=== PATIENT | male | born 1970 | race Caucasian/White ===

== ENCOUNTER 2020-08-25 20:13 | Inpatient (IN) ==
[2020-08-25] MEDS ORDERED: 0.9 % Sodium Chloride 2,000 ML ONE (20:33)
[2020-08-25] MEDS ORDERED: *HR* Atropine Sulfate 1 MG/10 ML SYRINGE ONE (20:34)
[2020-08-25] MEDS ORDERED: ISOVUE-370 200 ML INFUS..BTL ONE ×2 (20:34→21:46)
[2020-08-25] MEDS ORDERED: Nitroglycerin 1,000 MCG/10 ML VIAL IV ONE (20:34)
[2020-08-25] MEDS ORDERED: *HR* Bivalirudin 250 MG VIAL IVC ONE (20:34)
[2020-08-25] MEDS ORDERED: *HR* Heparin 10,000 UNIT/10 ML VIAL ONE (20:34)
[2020-08-25] MEDS ORDERED: Heparin 1,000 UNITS/500 mL 500 ML ONE (20:34)
[2020-08-25] MEDS ORDERED: *HR* Midazolam HCl 2 MG/2 ML VIAL ONE (21:37)
[2020-08-25] MEDS ORDERED: *HR* FentaNYL (PF) 100 MCG/2 ML VIAL ONE (21:37)
[2020-08-25] MEDS ORDERED: 0.9 % Sodium Chloride 1,000 ML IVC SCH (22:30)
[2020-08-25] MEDS ORDERED: Perflutren Lipid Microsphere 1.3 ML in 0.9 % Sodium Chloride 8.7 ML IVP PRN (22:30)
[2020-08-25] MEDS ORDERED: Nitroglycerin 0.4 MG TAB.SUBL SL PRN (22:30)
[2020-08-26] MEDS ORDERED: 0.9 % Sodium Chloride 1,000 ML ONE (00:39)
[2020-08-26] MEDS ORDERED: *HR* Atropine Sulfate 1 MG/10 ML SYRINGE ONE (00:39)
[2020-08-26 07:04] LABS: BUN/Creatinine Ratio 23 (6-26); Blood Urea Nitrogen 14 mg/dL (6-20); Calcium 9.3 mg/dL (8.6-10.3); Carbon Dioxide 22 mEq/L (23-29); Chloride 108 mEq/L (98-107); Chol/HDL Ratio 4.6 (0-4.9); Cholesterol 216 mg/dL (< 200); Glucose 111 mg/dL (70-105); HDL Cholesterol 47 mg/dL (40-59); LDL Cholesterol,Calculated 107 mg/dL (< 100); Osmolality,Calculated 291 (280-300); Potassium 3.9 mEq/L (3.5-5.1); Sodium 140 mEq/L (136-145); Triglycerides 309 mg/dL (< 150); Troponin I 69.42 ng/mL (< 0.04); eGFR For African Americans > 60 (> 60); eGFR For Non-African Americans > 60 (> 60)
[2020-08-26] MEDS ORDERED: carvediloL 6.25 MG TABLET PO SCH (08:00)
[2020-08-26 08:38] LABS: Estimated Average Glucose 131 mg/dl
[2020-08-26] MEDS ORDERED: Aspirin 81 MG TAB.CHEW PO SCH (09:00)
[2020-08-26] MEDS ORDERED: lisinopriL 5 MG TABLET PO SCH (09:00)
[2020-08-26] MEDS ORDERED: *HR* Ticagrelor 90 MG TABLET PO SCH (09:00)
[2020-08-26 10:10] VITALS: BP 100/62
== END 2020-08-26 15:45 | disposition left against medical advice (07) | DRG 246 ==
LOC: ICNU → OBSVTOIN 22:25
PROVIDERS: ADMIT Internal Medicine Interventional Cardiology; ATTEND Internal Medicine Interventional Cardiology

== ENCOUNTER 2022-03-22 20:22 | Inpatient (IN) ==
[2022-03-22 21:23] LABS: Immature Granulocytes % 0.6 % (0-4); Lymphocytes % 12.8 %; Mean Platelet Volume 10.6 fL (9.4-12.4)
[2022-03-22 21:25] LABS: Basophils # 0.1 K/mcL (0.0-0.2); Basophils % 0.9 %; Eosinophils # 0.1 K/mcL (0.0-0.6); Eosinophils % 0.9 %; Hematocrit 43.5 % (37.5-50.1); Hemoglobin 13.5 g/dL (12.9-16.9); Lymphocytes # 1.6 K/mcL (0.6-4.6); Mean Corpuscular Hemoglobin 27.7 pg (28.0-33.3); Mean Corpuscular Volume 89.1 fL (83.0-100.0); Monocytes # 1.3 K/mcL (0.0-1.3); Neutrophils # 9.5 K/mcL (1.6-8.9); Platelet Count 306 K/mcL (140-400); Red Blood Count 4.88 M/mcL (4.19-5.50); Red Cell Distribution Width 14.9 % (11.5-14.5); Segmented Neutrophils % 74.8 %; White Blood Count 12.7 K/mcL (4.3-11.1)
[2022-03-22] MEDS ORDERED: Famotidine 20 MG/2 ML VIAL IVP ONE (21:38)
[2022-03-22] MEDS ORDERED: Isovue-370 500 ML BOTTLE IVP ONE ×2 (21:38→21:55)
[2022-03-22] MEDS ORDERED: *HR* FentaNYL (PF) 100 MCG/2 ML VIAL IVP ONE ×2 (21:38→23:08)
[2022-03-22 21:54] LABS: Alanine Aminotransferase 112 Units/L (7-52); Albumin 3.6 g/dL (3.5-5.7); Albumin/Globulin Ratio 1.4 (1.1-2.2); Alkaline Phosphatase 283 Units/L (34-104); Aspartate Amino Transferase 60 Units/L (13-39); BUN/Creatinine Ratio 20 (6-26); Bilirubin,Direct 0.2 mg/dL (0.0-0.2); Bilirubin,Indirect 0.6 mg/dL (0.0-1.0); Bilirubin,Total 0.8 mg/dL (0.3-1.0); Blood Urea Nitrogen 23 mg/dL (6-20); Carbon Dioxide 25 mEq/L (23-29); Chloride 104 mEq/L (98-107); Globulin 2.5 g/dL (2.4-3.5); Glucose 126 mg/dL (70-105); Lipase 33 Units/L (11-82); Osmolality,Calculated 287 (280-300); Potassium 4.4 mEq/L (3.5-5.1); Sodium 136 mEq/L (136-145); Total Protein 6.1 g/dL (6.4-8.9); Troponin I 0.04 ng/mL (< 0.04); eGFR For African Americans > 60 (> 60); eGFR For Non-African Americans > 60 (> 60)
[2022-03-23] MEDS ORDERED: cefTRIAXone 2,000 MG in 0.9 % Sodium Chloride Mini Bag 100 ML IVPB ONE (00:03)
[2022-03-23] MEDS ORDERED: Aspirin 81 MG TAB.CHEW PO ONE (00:12)
[2022-03-23] MEDS ORDERED: Melatonin 3 MG TABLET PO PRN (00:23)
[2022-03-23] MEDS ORDERED: Naloxone 0.4 MG/ML INJ IVP PRN (00:23)
[2022-03-23] MEDS: Pantoprazole 40 MG VIAL IVP SCH (01:49)
[2022-03-23 03:01] LABS: Basophils # 0.1 K/mcL (0.0-0.2); Basophils % 0.9 %; Eosinophils # 0.1 K/mcL (0.0-0.6); Eosinophils % 0.6 %; Hematocrit 42.1 % (37.5-50.1); Immature Granulocytes % 0.6 % (0-4); Lymphocytes # 1.8 K/mcL (0.6-4.6); Mean Corpuscular HGB Conc 30.9 g/dL (31.6-35.5); Mean Corpuscular Hemoglobin 27.7 pg (28.0-33.3); Mean Corpuscular Volume 89.6 fL (83.0-100.0); Mean Platelet Volume 10.4 fL (9.4-12.4); Monocytes # 1.3 K/mcL (0.0-1.3); Monocytes % 10.5 %; Neutrophils # 8.7 K/mcL (1.6-8.9); Platelet Count 314 K/mcL (140-400); Red Cell Distribution Width 15.1 % (11.5-14.5); Segmented Neutrophils % 72.4 %
[2022-03-23 03:13] LABS: INR 1.4; Prothrombin Time 15.9 Seconds (9.4-12.1)
[2022-03-23 03:20] LABS: Acetaminophen < 10 mcg/mL (10-20); Ethanol < 10 mg/dL (Less than 10)
[2022-03-23 03:23] LABS: Alanine Aminotransferase 102 Units/L (7-52); Albumin 3.3 g/dL (3.5-5.7); Albumin/Globulin Ratio 1.3 (1.1-2.2); Alkaline Phosphatase 254 Units/L (34-104); Aspartate Amino Transferase 55 Units/L (13-39); BUN/Creatinine Ratio 24 (6-26); Bilirubin,Total 0.6 mg/dL (0.3-1.0); Blood Urea Nitrogen 23 mg/dL (6-20); Calcium 8.7 mg/dL (8.6-10.3); Carbon Dioxide 18 mEq/L (23-29); Chloride 107 mEq/L (98-107); Globulin 2.5 g/dL (2.4-3.5); Glucose 136 mg/dL (70-105); Osmolality,Calculated 286 (280-300); Phosphorous 4.3 mg/dL (2.7-4.5); Potassium 4.8 mEq/L (3.5-5.1); Sodium 135 mEq/L (136-145); Total Protein 5.8 g/dL (6.4-8.9); eGFR For African Americans > 60 (> 60); eGFR For Non-African Americans > 60 (> 60)
[2022-03-23 03:27] LABS: Troponin I 0.03 ng/mL (< 0.04)
[2022-03-23 08:42] LABS: Amphetamine Screen,Urine Negative ng/mL (Cutoff=1000); Barbiturate Screen,Urine Negative ng/mL (Cutoff=200); Benzodiazepines Screen,Urine Negative ng/mL (Cutoff=200); Cannabinoid Screen,Urine Negative ng/mL (Cutoff = 50); Cocaine Screen,Urine Negative ng/mL (Cutoff= 300); Opiate Screen,Urine Negative ng/mL (Cutoff=300); Phencyclidine Screen,Urine Negative ng/mL (Cutoff=25)
[2022-03-23] MEDS ORDERED: Morphine Sulfate 2 MG/ML SYRINGE IVP ONE (12:52)
[2022-03-23] MEDS: Ondansetron 4 MG/2 ML VIAL IVP PRN ×2 (13:16→20:45)
[2022-03-23] MEDS ORDERED: 0.9 % Sodium Chloride 500 ML IVC ONE ×4 (13:39→21:12)
[2022-03-23] MEDS ORDERED: Ketorolac 30 MG/ML VIAL IVP ONE (13:56)
[2022-03-23] MEDS: Aspirin 81 MG TAB.CHEW PO SCH (13:57)
[2022-03-23 14:31] LABS: Total Protein,Peritoneal Fluid 2.9 g/dL
[2022-03-23 14:42] LABS: Glucose,Pleural Fluid 161 mg/dL (No Ref Range); LDH,Pleural Fluid 47 Units/L (No Ref Range); Total Protein,Pleural Fluid < 2.0 g/dL
[2022-03-23 15:18] LABS: RBC,Peritoneal Fluid 93000 RBC/mcL
[2022-03-23] MEDS ORDERED: 0.9 % Sodium Chloride 500 ML ONE (15:27)
[2022-03-23 16:26] LABS: INR 1.6; Prothrombin Time 17.9 Seconds (9.4-12.1)
[2022-03-23] MEDS: Albumin 25% 25gram/100mL 25 GM/100 ML IV.SOLN IVPB SCH (16:41)
[2022-03-23 16:44] LABS: RBC,Pleural Fluid < 2000 RBC/mcL
[2022-03-23 17:39] LABS: Hepatitis B Surface Antigen Nonreactive (Nonreactive)
[2022-03-23 17:44] LABS: Appearance of Peritoneal Fl BLOODY (Clear); Basophils,Peritoneal Fluid 0 %
[2022-03-23 18:09] LABS: Hepatitis C Virus Antibody Nonreactive (Nonreactive)
[2022-03-23 18:12] LABS: Hepatitis A Antibody IgM Nonreactive (Nonreactive); Hepatitis B Core IgM Nonreactive (Nonreactive)
[2022-03-23 18:23] LABS: Appearance of Pleural Fl Clear (Clear); Basophils,Pleural Fluid 0 %; Eosinophils,Pleural Fluid 0 %; Monocytes,Pleural Fluid 0 %
[2022-03-23] MEDS ORDERED: Albumin 25% 25gram/100mL 25 GM/100 ML IV.SOLN IVPB ONE (19:38)
[2022-03-23] MEDS ORDERED: Pantoprazole 40 MG VIAL IVP ONE (20:44)
[2022-03-23] MEDS ORDERED: cefTRIAXone 2,000 MG in 0.9 % Sodium Chloride 20 ML IVP SCH (21:00)
[2022-03-23 21:16] LABS: Hematocrit 40.2 % (37.5-50.1); Hemoglobin 12.2 g/dL (12.9-16.9); Mean Corpuscular HGB Conc 30.3 g/dL (31.6-35.5); Mean Corpuscular Hemoglobin 27.4 pg (28.0-33.3); Mean Corpuscular Volume 90.3 fL (83.0-100.0); Mean Platelet Volume 10.5 fL (9.4-12.4); Platelet Count 270 K/mcL (140-400); Red Blood Count 4.45 M/mcL (4.19-5.50); Red Cell Distribution Width 15.4 % (11.5-14.5); White Blood Count 13.9 K/mcL (4.3-11.1)
[2022-03-23] MEDS ORDERED: Isovue-370 500 ML BOTTLE IVP ONE ×2 (22:40→22:45)
[2022-03-23] MEDS ORDERED: Perflutren Lipid Microsphere 1.3 ML in 0.9 % Sodium Chloride 8.7 ML IVP PRN (23:12)
[2022-03-23 23:35] LABS: ABG Base Excess -16 mEq/L (-2 to 3); ABG HCO3 9 mEq/L (21-27); ABG Oxygen Saturation 100 % (95-98); ABG PCO2 18 mmHg (35-45); ABG PH 7.29 pH Units (7.32-7.45); ABG PO2 205 mmHg (85-104); ABG TCO2 9 mEq/L (20-26); Blood Gas Modality AVAPS; Blood Gas VT 500 cc
[2022-03-23] MEDS ORDERED: D5% in Water 1,000 ML IVC PRN (23:36)
[2022-03-23] MEDS ORDERED: Dextrose 4 GM Chewable Tablets PO PRN ×2 (23:36)
[2022-03-24] MEDS: *HR* Dextrose 50 % in Water (Syg) 50 ML SYRINGE IVP PRN ×2 (00:11→01:29)
[2022-03-24 00:35] VITALS: TEMP 94
[2022-03-24] MEDS ORDERED: D5% in Water 1,000 ML IVC SCH (01:00)
[2022-03-24 01:17] LABS: Basophils # 0.2 K/mcL (0.0-0.2); Eosinophils # 0.1 K/mcL (0.0-0.6); Eosinophils % 0.3 %; Hematocrit 44.9 % (37.5-50.1); Hemoglobin 13.1 g/dL (12.9-16.9); Immature Granulocytes % 4.5 % (0-4); Lymphocytes # 2.4 K/mcL (0.6-4.6); Lymphocytes % 13.4 %; Mean Corpuscular HGB Conc 29.2 g/dL (31.6-35.5); Mean Corpuscular Hemoglobin 27.5 pg (28.0-33.3); Mean Corpuscular Volume 94.1 fL (83.0-100.0); Mean Platelet Volume 10.3 fL (9.4-12.4); Monocytes # 1.9 K/mcL (0.0-1.3); Monocytes % 10.6 %; Neutrophils # 12.6 K/mcL (1.6-8.9); Nucleated Red Blood Cells 0.1 /100 WBC (0); Platelet Count 216 K/mcL (140-400); Red Blood Count 4.77 M/mcL (4.19-5.50); Red Cell Distribution Width 15.7 % (11.5-14.5); Segmented Neutrophils % 70.2 %; White Blood Count 17.9 K/mcL (4.3-11.1)
[2022-03-24 01:27] LABS: INR 1.8; Prothrombin Time 20.4 Seconds (9.4-12.1)
[2022-03-24 01:31] LABS: Albumin 3.5 g/dL (3.5-5.7); Albumin/Globulin Ratio 1.6 (1.1-2.2); Bilirubin,Direct 0.9 mg/dL (0.0-0.2); Bilirubin,Indirect 0.7 mg/dL (0.0-1.0); Bilirubin,Total 1.6 mg/dL (0.3-1.0); Globulin 2.2 g/dL (2.4-3.5); Total Protein 5.7 g/dL (6.4-8.9)
[2022-03-24 01:54] LABS: Calcium 7.7 mg/dL (8.6-10.3); Potassium 7.5 mEq/L (3.5-5.1); Troponin I 0.03 ng/mL (< 0.04)
[2022-03-24] MEDS ORDERED: *HR* Etomidate 20 MG/10 ML AMPUL IVP ONE (02:00)
[2022-03-24] MEDS ORDERED: EPINEPHrine 1 MG/ML VIAL IV ONE (02:00)
[2022-03-24] MEDS ORDERED: *HR* Amiodarone 450 MG/9 ML VIAL IVC ONE (02:00)
[2022-03-24] MEDS ORDERED: *HR* Midazolam HCl 5 MG/5 ML VIAL IVP ONE ×3 (02:00→02:48)
[2022-03-24] MEDS ORDERED: *HR* Midazolam HCl 2 MG/2 ML VIAL IVP ONE (02:00)
[2022-03-24] MEDS ORDERED: *HR* Dextrose 50 % in Water (Syg) 50 ML SYRINGE IVP ONE (02:00)
[2022-03-24 02:33] LABS: ABG Base Excess -15 mEq/L (-2 to 3); ABG HCO3 12 mEq/L (21-27); ABG Oxygen Saturation 100 % (95-98); ABG PCO2 30 mmHg (35-45); ABG PH 7.21 pH Units (7.32-7.45); ABG PO2 322 mmHg (85-104); ABG TCO2 13 mEq/L (20-26); Blood Gas Modality BiLevel; Blood Gas Pressure Support 2 cm H2O
[2022-03-24] MEDS ORDERED: Midazolam HCl 50 MG/50 ML IV.SOLN IVC SCH (03:00)
[2022-03-24] MEDS ORDERED: FentaNYL (PF) 1,000 MCG/100 ML IV.SOLN IVC SCH (03:00)
[2022-03-24] MEDS ORDERED: 0.9 % Sodium Chloride 250 ML ONE (03:03)
[2022-03-24 03:13] LABS: Basophils # 0.1 K/mcL (0.0-0.2); Basophils % 0.5 %; Eosinophils % 0.1 %; Hematocrit 41.5 % (37.5-50.1); Immature Granulocytes % 4.8 % (0-4); Lymphocytes # 2.3 K/mcL (0.6-4.6); Lymphocytes % 13.6 %; Mean Corpuscular HGB Conc 28.9 g/dL (31.6-35.5); Mean Corpuscular Hemoglobin 27.5 pg (28.0-33.3); Mean Platelet Volume 10.9 fL (9.4-12.4); Monocytes # 1.5 K/mcL (0.0-1.3); Monocytes % 8.9 %; Neutrophils # 12.1 K/mcL (1.6-8.9); Nucleated Red Blood Cells 0.2 /100 WBC (0); Platelet Count 227 K/mcL (140-400); Red Blood Count 4.37 M/mcL (4.19-5.50); Red Cell Distribution Width 15.6 % (11.5-14.5); Segmented Neutrophils % 72.1 %; White Blood Count 16.8 K/mcL (4.3-11.1)
[2022-03-24 03:22] LABS: INR 2.1; Prothrombin Time 23.2 Seconds (9.4-12.1)
[2022-03-24] MEDS ORDERED: DOBUTamine 1,000 MG/250 ML BAG ONE (03:24)
[2022-03-24] MEDS ORDERED: Sodium Bicarbonate 150 MEQ in Water for inj. (sterile) 1,000 ML IVC SCH (03:30)
[2022-03-24 03:31] LABS: Albumin 3.2 g/dL (3.5-5.7); Albumin/Globulin Ratio 1.8 (1.1-2.2); Bilirubin,Indirect 0.6 mg/dL (0.0-1.0); Bilirubin,Total 1.6 mg/dL (0.3-1.0); Calcium 8.6 mg/dL (8.6-10.3); Globulin 1.8 g/dL (2.4-3.5); Magnesium 2.2 mg/dL (1.6-2.6); Phosphorous 9.2 mg/dL (2.7-4.5); Potassium 7.4 mEq/L (3.5-5.1)
[2022-03-24] MEDS ORDERED: *HR* Dextrose 50 % in Water (Syg) 50 ML SYRINGE ONE (03:32)
[2022-03-24] MEDS ORDERED: Calcium Gluconate 1gm/50mL 1 GM/50 ML BAG IVPB ONE (03:34)
[2022-03-24 03:44] LABS: Platelet Estimate Normal (Normal)
[2022-03-24] MEDS ORDERED: DOBUTamine 1,000 MG/250 ML BAG IVC SCH (03:45)
[2022-03-24] MEDS ORDERED: Insulin Human Regular 10 UNIT in 0.9 % Sodium Chloride 10 ML IV ONE (03:45)
[2022-03-24] MEDS: EPINEPHrine 5 MG in D5% in Water 250 ML IVC SCH ×2 (04:42→06:15)
[2022-03-24] MEDS: Albumin 25% 25gram/100mL 25 GM/100 ML IV.SOLN IVPB SCH (05:46)
[2022-03-24] MEDS ORDERED: D5 IVC SCH (07:15)
[2022-03-24] MEDS ORDERED: EPINEPHRINE IVC SCH (07:15)
[2022-03-24] MEDS ORDERED: WATER IVC SCH (07:15)
[2022-03-24] MEDS ORDERED: *HR* LORazepam 2 MG/ML VIAL IVP PRN (08:16)
[2022-03-24] MEDS ORDERED: Morphine Sulfate 2 MG/ML SYRINGE IVP PRN (08:16)
[2022-03-24] MEDS: Aspirin 81 MG TAB.CHEW PO SCH (08:18)
[2022-03-24] MEDS: Pantoprazole 40 MG VIAL IVP SCH (08:18)
[2022-03-24] MEDS ORDERED: Furosemide 40 MG/4 ML VIAL IVP SCH (09:00)
[2022-03-24 11:18] VITALS: BP 80/63; PULSE 77; O2SAT 85
[2022-03-25 06:08] LABS: Fluid Source for Albumin PERITONEAL FL
== END 2022-03-24 14:21 | disposition expired | DRG 432 ==
LOC: 3BNU 20:22 → EMEROOARM 20:22 → SUATTDRO 03-23 00:23 → 3BNU 03-23 00:43 → 2NENU 03-23 16:29 → ICNU 03-23 22:49
PROVIDERS: ADMIT Internal Medicine; ATTEND Nurse Practitioner